=== PATIENT | female | born 1960 | race Caucasian/White ===

== ENCOUNTER 2018-08-28 18:21 | Emergency (ER) | payer OTHER | END 2018-08-28 19:04 | disposition home or self-care (01) | LOC: NAV ERS 18:21 | DX: T21.14XA Burn of first degree of lower back, initial encounter (principal); T31.11 Burns involving 10-19% of body surface with 10-19% third degree burns; X08.8XXA Exposure to other specified smoke, fire and flames, initial encounter | CPT/HCPCS: 99283 ==